=== PATIENT | female | born 1995 | race Caucasian/White ===

== ENCOUNTER 2016-06-15 23:59 | Emergency (ER) | payer MEDICAID, OTHER ==
[2016-06-16 00:11] VITALS: BP 134/84; PULSE 100; RESP 20; TEMP 98.4; O2SAT 100
--- NOTE | 2016-06-16 00:31 | C.PDOC ---
History Of Present Illness Patient is a 20 year old female who presents to the ER with a complaint of left ear pain. Patient states she has a history of similar symptoms. Patient reports taking unknown ear drops with no relief. Denies any recent swimming, fever, or vomiting. Time Seen by Provider: 06/16/16 00:15 Chief Complaint (Nursing): ENT Problem History Per: Patient History/Exam Limitations: Clinical Condition Current Symptoms Are (Timing): Still Present Past Medical History Reviewed: Historical Data, Nursing Documentation, Vital Signs Vital Signs: Last Vital Signs Temp 98.4 F 06/16/16 00:09 Pulse 100 H 06/16/16 00:09 Resp 20 06/16/16 00:09 BP 134/84 06/16/16 00:09 Pulse Ox 100 06/16/16 01:21 - Medical History PMH: No Chronic Diseases Surgical History: No Surg Hx Family History: States: Unknown Family Hx - Social History Hx Tobacco Use: Yes Hx Alcohol Use: No Hx Substance Use: No - Immunization History Hx Tetanus Toxoid Vaccination: No Hx Influenza Vaccination: No Hx Pneumococcal Vaccination: No Review Of Systems Constitutional: Negative for: Fever ENT: Positive for: Ear Pain Gastrointestinal: Negative for: Vomiting Physical Exam - Physical Exam Appears: Well, Non-toxic, No Acute Distress Skin: Normal Color, Warm, Dry Head: Atraumatic, Normacephalic Eye(s): bilateral: Normal Inspection, EOMI Ear(s): Left: Other (Tragus tenderness, exudates in canal.), Bilateral: Normal Nose: Normal Oral Mucosa: Moist Throat: Normal, No Erythema, No Exudate Neck: Normal, Normal ROM, Supple Lymphatic: No Adenopathy Chest: Symmetrical Cardiovascular: Rhythm Regular Respiratory: Normal Breath Sounds, No Accessory Muscle Use, Other (Speaking in complete sentences) Neurological/Psych: Oriented x3, Normal Speech, Other (No focal deficits) ED Course And Treatment O2 Sat by Pulse Oximetry: 100 (Room air) Pulse Ox Interpretation: Normal Progress Note: Motrin PO administered. On reassessment, patient is resting comfortably, and is in no acute distress. Patient was instructed to follow up with physician/clinic in 1-2 days for further evaluation. Disposition - Disposition Referrals: Prudencio Flores MD [Staff Provider] - Disposition: HOME/ ROUTINE Disposition Time: 00:28 Condition: STABLE Additional Instructions: Follow up with primary medical doctor in 1-3 days without fail for further evaluation. Take medications as prescribed. Return to the emergency department at any time if symptoms persist or worsen. Prescriptions: Ibuprofen [Motrin] 600 mg PO Q6 PRN #20 tab PRN Reason: Pain, Mild (1-3) Neomycin/Polymyxin/Hydrocortis [Cortisporin Otic Susp] 5 drop OT Q6 #1 bottle Instructions: Otitis Externa (ED) - Clinical Impression Clinical Impression: Otitis externa - Scribe Statement The provider has reviewed the documentation as recorded by the Scribcheryle Caballero All medical record entries made by the Gracieibcheryle were at my direction and personally dictated by me. I have reviewed the chart and agree that the record accurately reflects my personal performance of the history, physical exam, medical decision making, and the department course for this patient. I have also personally directed, reviewed, and agree with the discharge instructions and disposition.
== END 2016-06-16 01:01 | disposition home or self-care (01) ==
LOC: C.ER 23:59
DX: H60.92 Unspecified otitis externa, left ear (principal)

== ENCOUNTER 2016-12-18 18:32 | Emergency (ER) | payer MEDICAID ==
[2016-12-18 18:36] VITALS: TEMP 98.2
--- NOTE | 2016-12-18 20:18 | C.PDOC ---
History Of Present Illness 21 year old female presents to the ED for evaluation of right ear pain which began 2 days ago. Patient notes a tactile fever and decreased hearing in the ear. She denies fever, chills, ear discharge, sore throat, cough. Time Seen by Provider: 12/18/16 19:51 Chief Complaint (Nursing): ENT Problem History Per: Patient History/Exam Limitations: None Onset/Duration Of Symptoms: Days (2) Current Symptoms Are (Timing): Still Present Quality (Ear): Pain W/Touch, Other (decreased hearing ) Past Medical History Reviewed: Historical Data, Nursing Documentation, Vital Signs Vital Signs: Last Vital Signs Temp 98.2 F 12/18/16 18:34 Pulse 72 12/18/16 20:30 Resp 18 12/18/16 20:30 BP 120/72 12/18/16 20:30 Pulse Ox 98 12/18/16 20:30 - Medical History PMH: No Chronic Diseases Surgical History: No Surg Hx Family History: States: Unknown Family Hx - Social History Hx Tobacco Use: Yes Hx Alcohol Use: Yes Hx Substance Use: No - Immunization History Hx Tetanus Toxoid Vaccination: No Hx Influenza Vaccination: No Hx Pneumococcal Vaccination: No Review Of Systems Constitutional: Positive for: Fever (tactile ) ENT: Positive for: Ear Pain (right). Negative for: Ear Discharge, Throat Pain Respiratory: Negative for: Cough Physical Exam - Physical Exam Appears: Well, Non-toxic, No Acute Distress Skin: Normal Color, Warm, Dry Head: Atraumatic, Normacephalic Eye(s): bilateral: Normal Inspection Ear(s): Left: Normal, Right: Other (mild swelling noted in canal. TM partially visualized, but noted to be erythematous. tragus tenderness noted. ) Nose: Normal, No Discharge Oral Mucosa: Moist Throat: Normal, No Erythema, No Exudate Chest: Symmetrical, No Deformity, No Tenderness Cardiovascular: Rhythm Regular, No Murmur Respiratory: Normal Breath Sounds, No Rales, No Rhonchi, No Wheezing Extremity: Normal ROM Neurological/Psych: Oriented x3, Normal Speech, Normal Cognition Gait: Steady ED Course And Treatment O2 Sat by Pulse Oximetry: 100 (on RA) Pulse Ox Interpretation: Normal Progress Note: Amoxicillin PO and Tylenol PO administered. On reassessment, patient is resting comfortably, showing no signs of distress and reports an improvement in her symptoms. Patient is stable for discharge and is advised to follow up with her PMD within 1-2 days for further evaluation. Reassessment Condition: Improved Disposition Counseled Patient/Family Regarding: Diagnosis, Need For Followup, Rx Given - Disposition Referrals: Rosalia Askew MD [Medical Doctor] - Disposition: HOME/ ROUTINE Disposition Time: 20:17 Condition: STABLE Additional Instructions: Take antibiotics until completed. Place nothing in ear. Tylenol 650 mg or Motrin 600 mg by mouth every 6 hours for pain. Follow up with your doctor in 1- 2 days. 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 - Scribe Statement The provider has reviewed the documentation as recorded by the Scribe (Sharla Reese) All medical record entries made by the Scribe were at my direction and personally dictated by me. I have reviewed the chart and agree that the record accurately reflects my personal performance of the history, physical exam, medical decision making, and the department course for this patient. I have also personally directed, reviewed, and agree with the discharge instructions and disposition.
[2016-12-18 20:31] VITALS: BP 120/72; PULSE 72; RESP 18
[2016-12-18 22:08] VITALS: O2SAT 100
== END 2016-12-18 20:31 | disposition home or self-care (01) ==
LOC: C.ER 18:32
DX: H66.91 Otitis media, unspecified, right ear (principal)

== ENCOUNTER 2017-03-09 14:48 | Emergency (ER) | payer MEDICAID, OTHER ==
[2017-03-09 17:14] LABS: HCG,QUALITATIVE URINE NEGATIVE (NEGATIVE)
[2017-03-09 17:19] LABS: URINE BACTERIA OCC (<OCC); URINE BILIRUBIN NEGATIVE (NEGATIVE); URINE BLOOD 3+ (NEGATIVE); URINE CLARITY Hazy (Clear); URINE COLOR Amber (YELLOW); URINE GLUCOSE (UA) NORMAL (Normal); URINE LEUKOCYTE ESTERASE NEG Leu/uL (Negative); URINE NITRATE NEGATIVE (NEGATIVE); URINE PROTEIN 2+ mg/dL (NEGATIVE); URINE UROBILINOGEN NORMAL mg/dL (0.2-1.0)
--- NOTE | 2017-03-09 17:33 | C.PDOC ---
History Of Present Illness Pt states that she took "Plan B" 2 weeks ago and her menstrual period started 3 days ago but it is a little heavier than normal. Time Seen by Provider: 03/09/17 15:34 Chief Complaint (Nursing): Female Genitourinary History Per: Patient Onset/Duration Of Symptoms: Days (3) Current Symptoms Are (Timing): Still Present Severity: Moderate Quality Of Discomfort: Cramping Alleviating Factors: None Additional History Per: Prior Records Abnormal Vaginal Bleeding: Yes Past Medical History Reviewed: Historical Data, Nursing Documentation, Vital Signs Vital Signs: Last Vital Signs Temp 99.5 F 03/09/17 15:09 Pulse 86 03/09/17 15:09 Resp 18 03/09/17 15:09 BP 138/97 H 03/09/17 15:09 Pulse Ox 100 03/09/17 15:09 - Medical History PMH: No Chronic Diseases Surgical History: No Surg Hx Family History: States: Unknown Family Hx - Social History Hx Tobacco Use: Yes Hx Alcohol Use: Yes Hx Substance Use: No - Immunization History Hx Tetanus Toxoid Vaccination: No Hx Influenza Vaccination: No Hx Pneumococcal Vaccination: No Review Of Systems Except As Marked, All Systems Reviewed And Found Negative. Constitutional: Negative for: Fever, Weakness Cardiovascular: Negative for: Chest Pain, Light Headedness Respiratory: Negative for: Shortness of Breath Gastrointestinal: Negative for: Vomiting, Diarrhea Genitourinary: Positive for: Vaginal Bleeding, Pelvic Pain. Negative for: Dysuria Musculoskeletal: Negative for: Neck Pain Skin: Negative for: Rash Neurological: Negative for: Weakness, Numbness, Dizziness Physical Exam - Physical Exam Appears: Non-toxic, No Acute Distress Skin: Normal Color, Warm, Dry, No Rash Head: Atraumatic, Normacephalic Eye(s): bilateral: Normal Inspection, PERRL, EOMI Neck: Normal ROM, Supple Cardiovascular: Rhythm Regular Respiratory: Normal Breath Sounds, No Accessory Muscle Use Gastrointestinal/Abdominal: Soft, Tenderness (mild suprapubic) Back: No CVA Tenderness Extremity: Normal ROM Neurological/Psych: Oriented x3, Normal Motor, Normal Sensation ED Course And Treatment - Laboratory Results Urine POC: Negative O2 Sat by Pulse Oximetry: 100 Pulse Ox Interpretation: Normal Disposition Counseled Patient/Family Regarding: Studies Performed, Diagnosis, Need For Followup, Rx Given - Disposition Referrals: Rosalia Askew MD [Medical Doctor] - Disposition: HOME/ ROUTINE Disposition Time: 17:33 Condition: STABLE Additional Instructions: Follow up with your Compensation Supervisor for further evaluation and treatment. Return to the ER if you develop fever, vomiting, dizziness, worsening of symptoms or if you have any other concerns. Prescriptions: Naproxen [Naprosyn] 1 tab PO BID PRN #20 tab PRN Reason: Pain Instructions: Menorrhagia (ED) - Clinical Impression Clinical Impression: Menorrhagia
[2017-03-09 17:51] VITALS: BP 136/82; PULSE 90; RESP 16; TEMP 98.1; O2SAT 99
== END 2017-03-09 17:50 | disposition home or self-care (01) ==
LOC: C.ER 14:48
DX: N92.0 Excessive and frequent menstruation with regular cycle (principal)

== ENCOUNTER 2017-05-13 21:04 | Emergency (ER) | payer MEDICAID ==
[2017-05-13 21:29] VITALS: TEMP 98.2
[2017-05-13 22:49] LABS: HCG,QUALITATIVE URINE NEGATIVE (NEGATIVE)
[2017-05-13 23:05] LABS: SQUAMOUS EPITHIAL 4 /hpf (0-5); URINE BACTERIA OCC (<OCC); URINE BILIRUBIN NEGATIVE (NEGATIVE); URINE BLOOD 2+ (NEGATIVE); URINE CLARITY Hazy (Clear); URINE COLOR Yellow (YELLOW); URINE GLUCOSE (UA) NORMAL (Normal); URINE LEUKOCYTE ESTERASE NEG Leu/uL (Negative); URINE PROTEIN NEGATIVE (NEGATIVE); URINE UROBILINOGEN NORMAL mg/dL (0.2-1.0)
--- NOTE | 2017-05-13 23:28 | C.PDOC ---
History Of Present Illness 21 y/o female presents to the ED with missed period since February. Patient has a Hx of irregular period but usually has a period every other month. States she had a negative home test. Patient has now developed intermittent cramping in the abdomen, prompting her to come in for further evaluation. Time Seen by Provider: 05/13/17 21:42 Chief Complaint (Nursing): Abdominal Pain History Per: Patient History/Exam Limitations: no limitations Onset/Duration Of Symptoms: Intermittent Episodes Current Symptoms Are (Timing): Still Present Abnormal Vaginal Bleeding: No Last Menstral Period: 02/2017 Past Medical History Reviewed: Historical Data, Nursing Documentation, Vital Signs Vital Signs: Last Vital Signs Temp 98.2 F 05/13/17 21:24 Pulse 70 05/13/17 23:39 Resp 14 05/13/17 23:39 BP 120/80 05/13/17 23:39 Pulse Ox 96 05/14/17 03:09 - Medical History PMH: No Chronic Diseases Denies: Chronic Kidney Disease Surgical History: No Surg Hx Family History: States: Unknown Family Hx - Social History Hx Tobacco Use: Yes Hx Alcohol Use: Yes Hx Substance Use: No - Immunization History Hx Tetanus Toxoid Vaccination: No Hx Influenza Vaccination: No Hx Pneumococcal Vaccination: No Review Of Systems Except As Marked, All Systems Reviewed And Found Negative. Constitutional: Negative for: Fever Gastrointestinal: Positive for: Abdominal Pain (cramping). Negative for: Nausea , Vomiting, Diarrhea Genitourinary: Positive for: Other (amenorrhea) Musculoskeletal: Negative for: Back Pain Physical Exam - Physical Exam Appears: Non-toxic, No Acute Distress Skin: Normal Color, Warm, Dry Head: Atraumatic, Normacephalic Eye(s): bilateral: Normal Inspection, PERRL, EOMI Nose: Normal Oral Mucosa: Moist Neck: Normal ROM, Supple Chest: Symmetrical Cardiovascular: Rhythm Regular, No Murmur Respiratory: Normal Breath Sounds, No Accessory Muscle Use Gastrointestinal/Abdominal: Soft, No Tenderness, No Guarding, No Rebound Pelvic: Other (Pt refused pelvic exam) Extremity: Bilateral: Atraumatic, No Pedal Edema, Normal Color And Temperature Neurological/Psych: Oriented x3, Normal Speech ED Course And Treatment O2 Sat by Pulse Oximetry: 96 (RA) Pulse Ox Interpretation: Normal Progress Note: Ordered UA and urine preg. Urine HCG is negative. Discussed findings w/ patient, and advised to follow up with [facility] Disposition Counseled Patient/Family Regarding: Studies Performed, Diagnosis, Need For Followup, Rx Given - [facility]position [facility] Disposition: HOME/ ROUTINE Disposition Time: 23:25 Condition: STABLE Additional Instructions: Please follow up with [facility] Tylenol or advil for pain Return to ER if worse Forms: General Discharge Instructions, [employer] [facility] (Anguillan), Work Excuse - POA Present On Arrival: None - Clinical Impression Clinical Impression: Suprapubic discomfort - PA / ASSISTANT MANAGER RETAIL / Resident Statement MD/DO has reviewed & agrees with the documentation as recorded. - Scribe Statement The provider has reviewed the documentation as recorded by the Scribe (Shweta Hall) All medical record entries made by the Scribe were at my direction and personally dictated by me. I have reviewed the chart and agree that the record accurately reflects my personal performance of the history, physical exam, medical decision making, and the department course for this patient. I have also personally directed, reviewed, and agree with the discharge instructions and disposition.
[2017-05-13 23:40] VITALS: BP 120/80; PULSE 70; RESP 14
[2017-05-14 03:07] VITALS: O2SAT 96
== END 2017-05-13 23:40 | disposition home or self-care (01) ==
LOC: C.ER 21:04
DX: R10.30 Lower abdominal pain, unspecified (principal); Z72.0 Tobacco use

== ENCOUNTER 2017-12-07 02:49 | Emergency (ER) | payer MEDICAID ==
[2017-12-07 03:04] VITALS: O2SAT 99
[2017-12-07 03:12] LABS: HCG,QUALITATIVE URINE NEGATIVE (NEGATIVE)
[2017-12-07 03:15] LABS: SQUAMOUS EPITHIAL 2 /hpf (0-5); URINE BILIRUBIN NEGATIVE (NEGATIVE); URINE BLOOD 3+ (NEGATIVE); URINE CLARITY Hazy (Clear); URINE COLOR Yellow (YELLOW); URINE GLUCOSE (UA) NORMAL (Normal); URINE LEUKOCYTE ESTERASE 3+ Leu/uL (Negative); URINE PROTEIN 2+ mg/dL (NEGATIVE); URINE UROBILINOGEN NORMAL mg/dL (0.2-1.0)
[2017-12-07] MEDS ORDERED: Tmp-Smz 800 mg-160 mg DS Tab PO STA (03:46)
[2017-12-07] MEDS ORDERED: Tmp-Smz 800 mg-160 mg DS Tab ONE (03:53)
[2017-12-07 03:57] VITALS: BP 122/72; PULSE 76; RESP 18; TEMP 98
--- NOTE | 2017-12-07 05:44 | C.PDOC ---
History Of Present Illness 22 year old female presents to the ER with a complaint of dysuria for the past 4 hours. Denies nausea, vomiting, fever, or hematuria. Time Seen by Provider: 12/07/17 03:02 Chief Complaint (Nursing): Female Genitourinary History Per: Patient History/Exam Limitations: no limitations Onset/Duration Of Symptoms: Hrs (4) Current Symptoms Are (Timing): Still Present Quality Of Discomfort: Burning Associated Symptoms: Urinary Symptoms (Dysuria no hematuria). denies: Fever, Nausea, Vomiting Alleviating Factors: None Recent travel outside of the [place]: No Abnormal Vaginal Bleeding: No Past Medical History Reviewed: Historical Data, Nursing Documentation, Vital Signs Vital Signs: Last Vital Signs Temp 98 F 12/07/17 03:56 Pulse 76 12/07/17 03:56 Resp 18 12/07/17 03:56 BP 122/72 12/07/17 03:56 Pulse Ox 99 12/07/17 03:56 - Medical History PMH: Denies: Chronic Kidney Disease Family History: States: Unknown Family Hx - Social History Hx Tobacco Use: Yes Hx Alcohol Use: Yes Hx Substance Use: No - Immunization History Hx Tetanus Toxoid Vaccination: No Hx Influenza Vaccination: No Hx Pneumococcal Vaccination: No Review Of Systems Constitutional: Negative for: Fever, Chills Respiratory: Negative for: Cough Gastrointestinal: Negative for: Nausea, Vomiting, Abdominal Pain Genitourinary: Positive for: Dysuria. Negative for: Hematuria Physical Exam - Physical Exam Appears: Non-toxic Skin: Normal Color, Warm, Dry Head: Atraumatic, Normacephalic Eye(s): bilateral: Normal Inspection Oral Mucosa: Moist Neck: Normal, Supple Chest: Symmetrical, No Tenderness Cardiovascular: Rhythm Regular Respiratory: Normal Breath Sounds, No Rales, No Rhonchi, No Wheezing Gastrointestinal/Abdominal: Soft, No Tenderness Neurological/Psych: Oriented x3, Normal Speech ED Course And Treatment O2 Sat by Pulse Oximetry: 99 (room air) Pulse Ox Interpretation: Normal Progress Note: Urinalysis ordered. Motrin and bactrim administered. Disposition - Disposition Referrals: Non [facility] Provider, [Primary Care Provider] - Disposition: HOME/ ROUTINE Disposition Time: 03:20 Condition: GOOD Additional Instructions: PEPPER ANDERS, thank you for letting us take care of you today. The emergency medical care you received today was directed at your acute symptoms. If you were prescribed any medication, please fill it and take as directed. It may take several days for your symptoms to resolve. Return to the Emergency Department if your symptoms worsen, do not improve, or if you have any other problems. Please contact your doctor or call one of the physicians/clinics you have been referred to that are listed on the Patient Visit Information form that is included in your discharge packet. Bring any paperwork you were given at discharge with you along with any medications you are taking to your follow up visit. Our treatment cannot replace ongoing medical care by a primary care provider outside of the emergency department. Thank you for allowing the [facility] team to be part of your care today. You had a urine culture: It will take several days for the results, if any change in treatment is needed we will contact you. Follow up with your primary care doctor in 3-4 days for re-evaluation and further management. Prescriptions: Ibuprofen [Motrin] 600 mg PO Q6 PRN #20 tab PRN Reason: Pain, Moderate (4-7) Sulfamethoxazole/Trimethoprim [Bactrim DS 800 mg-160 mg] 1 tab PO BID #10 tab Instructions: Urinary Tract Infection, Adult (DC) Forms: [employer] (Armenian) - Clinical Impression Clinical Impression: UTI (lower urinary tract infection) - Scribe Statement The provider has reviewed the documentation as recorded by the Scribe Godfrey Caballero All medical record entries made by the Scribe were at my direction and personally dictated by me. I have reviewed the chart and agree that the record accurately reflects my personal performance of the history, physical exam, medical decision making, and the department course for this patient. I have also personally directed, reviewed, and agree with the discharge instructions and disposition.
== END 2017-12-07 03:56 | disposition home or self-care (01) ==
LOC: SUPCPDRO 02:49 → C.ER 02:49
DX: N39.0 Urinary tract infection, site not specified (principal)